=== PATIENT | female | born 1935 | race Hispanic/Latino ===

== ENCOUNTER → 2019-03-29 | Outpatient (RCR) | payer MEDICARE ==
[~2019-03-29] MED LIST: ADVAIR 100-501 EACH PO; PROAIR HFA INH8.5 GM INH; PROVENTIL HFA6.7 GM PO; SINGULAIR10 MG PO; VITAMIN D3400 UNIT PO
== END ==
LOC: PT 09:57
PROVIDERS: ATTEND Family Medicine
DX: M47.812 Spondylosis without myelopathy or radiculopathy, cervical region (principal)

== ENCOUNTER → 2019-04-29 | Outpatient (RCR) | payer MEDICARE | LOC: PT 04-04 14:06 | PROVIDERS: ATTEND Family Medicine | DX: M47.812 Spondylosis without myelopathy or radiculopathy, cervical region (principal) | CPT/HCPCS: 97139 ==

== ENCOUNTER 2019-05-13 14:54 | Outpatient (RCR) | payer MEDICARE | END 2019-05-29 | LOC: PT 14:54 | PROVIDERS: ATTEND Family Medicine | DX: M47.812 Spondylosis without myelopathy or radiculopathy, cervical region (principal) ==